=== PATIENT | male | born 1960 | race Caucasian/White ===

== ENCOUNTER 2019-05-13 02:49 | Emergency (ER) | payer OTHER ==
[~2019-05-13] VITALS: Ht 165.1 cm; Wt 63.2 kg
[2019-05-13] MEDS ORDERED: methylPREDNISolone INJ 125 MG/2 ML VIAL (J2930) IV ONE (03:15)
[2019-05-13] MEDS ORDERED: IPRATROPIUM 0.5MG/ALBUTEROL 2.5MG INH SOL UD 3ML (DUONEB)(J7620) NEB ONE ×2 (03:15→04:15)
[2019-05-13 03:28] LABS: BASO % 0.3 % (0.0-1.0); EOS % 0.3 % (0.0-3.0); HEMATOCRIT 38.2 % (42.0-52.0); LYMPH # 1.5 10^3/uL (1.5-5.0); LYMPH % 25.7 % (24.0-44.0); MEAN CORPUSCULAR HEMOGLOBIN 33.3 pg (27.0-33.0); MEAN CORPUSCULAR HGB CONC 31.4 g/dl (32.0-36.5); MEAN CORPUSCULAR VOLUME 106.1 fl (80.0-96.0); MONO # 0.6 10^3/uL (0.0-0.8); MONO % 10.2 % (0.0-5.0); NEUTROPHILS # 3.6 10^3/uL (1.5-8.5); NEUTROPHILS % 62.3 % (36.0-66.0); PLATELET COUNT, AUTOMATED 240 10^3/uL (150-450); WHITE BLOOD COUNT 5.8 10^3/uL (4.0-10.0)
[2019-05-13 03:39] LABS: INR 0.99; PROTHROMBIN TIME 12.8 SECONDS (11.8-14.0)
[2019-05-13 03:40] LABS: PARTIAL THROMBOPLASTIN TIME 31.1 SECONDS (25.0-38.4)
[2019-05-13 04:04] LABS: ALBUMIN 3.1 GM/DL (3.2-5.2); ALT/SGPT 34 U/L (12-78); BILIRUBIN,DIRECT < 0.1 MG/DL (0.0-0.2); BILIRUBIN,TOTAL 0.2 MG/DL (0.2-1.0); BLOOD UREA NITROGEN 18 MG/DL (7-18); CALCIUM LEVEL 9.1 MG/DL (8.5-10.1); CARBON DIOXIDE LEVEL 31 MEQ/L (21-32); CHLORIDE LEVEL 103 MEQ/L (98-107); CK-MB VALUE MASS 4.4 NG/ML (<3.6); CPK CREATINE PHOSPHOKINASE 45 U/L (39-308); FREE T4 0.96 NG/DL (0.76-1.46); GLOMERULAR FILTRATION RATE > 60.0 (>56); GLUCOSE, FASTING 285 MG/DL (70-100); MB/CK RELATIVE INDEX 9.78 (< OR =4); NT-PRO BNP 594 PG/ML (<125); SODIUM LEVEL 143 MEQ/L (136-145); THYROID STIMULATING HORMONE 0.423 uIU/ML (0.358-3.740); TOTAL PROTEIN 6.3 GM/DL (6.4-8.2); TROPONIN I < 0.02 NG/ML (< 0.10)
--- NOTE | 2019-05-13 06:41 | REPVR ---
PROCEDURE INFORMATION: Exam: CT Angiography Chest With Contrast Exam date and time: 05/13/2019 4:11 AM Age: 58 years old Clinical indication: Shortness of breath; Additional info: SOB TECHNIQUE: Imaging protocol: Computed tomographic angiography of the chest with intravenous contrast. 3D rendering: MIP and/or 3D reconstructed images were created by the technologist. Radiation optimization: All CT scans at this facility use at least one of these dose optimization techniques: automated exposure control; mA and/or kV adjustment per patient size (includes targeted exams where dose is matched to clinical indication); or iterative reconstruction. Contrast material: ISO; Contrast volume: 75 ml; Contrast route: AC; COMPARISON: CR PORTABLE CHEST X-RAY 05/13/2019 2:59 AM FINDINGS: Pulmonary arteries: The main pulmonary artery measures 23 mm. No pulmonary embolism is identified. Aorta: The ascending thoracic aorta measures 37 mm. Lungs: Slight interstitial prominence with minimal bibasilar fibro-atelectatic change. Pleural space: Unremarkable. No pneumothorax. No pleural effusion. Heart: The left atrium measures 4.3 cm in its AP dimension. Lymph nodes: Unremarkable. No enlarged lymph nodes. Bones/joints: Old bilateral rib fractures. Soft tissues: Unremarkable. IMPRESSION: 1. Slight interstitial prominence with minimal bibasilar fibro-atelectatic change. 2. Borderline cardiomegaly. 3. Otherwise negative CTA chest. No pulmonary embolism is identified. Electronically signed by: Marlon Byrd On 05/13/2019 06:41:00 AM
--- NOTE | 2019-05-13 07:14 | ECGEPIP ---
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
--- NOTE | 2019-05-13 08:25 | REP ---
Portable chest x-ray: Two views. History: Chest pain. No comparison study. Findings: The lungs are slightly hyperinflated. Mild cardiomegaly is observed. There is coronary artery stent material visible over the right heart border. Oxygen delivery tubing is seen. The pulmonary vasculature is not increased. Heart is not felt to be enlarged. There are old bilateral healed rib fractures. Mild old post-traumatic deformity seen of the proximal humerus on the right as well. Impression: No active disease. Electronically Signed by Juan Luis Mehta MD 05/13/2019 07:58 P
[2019-05-13 09:28] LABS: CK-MB VALUE MASS 3.2 NG/ML (<3.6); CPK CREATINE PHOSPHOKINASE 74 U/L (39-308); MB/CK RELATIVE INDEX 4.32 (< OR =4); TROPONIN I < 0.02 NG/ML (< 0.10)
[2019-05-13 09:41] VITALS: O2SAT 95
[2019-05-13 09:50] VITALS: BP 127/68
--- NOTE | 2019-05-13 17:18 | ECGEPIP ---
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
== END 2019-05-13 09:52 | disposition home or self-care (01) ==
LOC: M ED 02:49
DX: J44.1 Chronic obstructive pulmonary disease with (acute) exacerbation (principal); I51.7 Cardiomegaly; R94.31 Abnormal electrocardiogram [ECG] [EKG]; I25.10 Atherosclerotic heart disease of native coronary artery without angina pectoris; Z86.718 Personal history of other venous thrombosis and embolism; F17.210 Nicotine dependence, cigarettes, uncomplicated
CPT/HCPCS: 71045; 71275; 80048; 80076; 82550; 82553; 83880; 84439; 84443; 84484; 85025; 85610; 85730; 87040; 93005; 93041; 94640; 94760; 96374; 99285; J2930